=== PATIENT | male | born 1995 | race Caucasian/White ===

== ENCOUNTER 2020-11-27 21:28 | Emergency (ER) | payer SELFPAY ==
[~2020-11-27] VITALS: Ht 170.2 cm; Wt 162.4 kg
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
[2020-11-27] MEDS ORDERED: IV RINGERS SOLUTION,LACTATED 1,000 ML IV SCH (21:45)
[2020-11-27] MEDS ORDERED: ASPIRIN CHEWABLE 81 MG TABLET. PO ONE (21:45)
[2020-11-27 22:31] LABS: BASO # 0.1 x10^3/uL (0.0-0.2); BASO % 1 % (0-3); EOS # 0.2 x10^3/uL (0.0-0.7); EOS % 4 % (0-3); HEMATOCRIT 41.2 % (39.0-53.0); HEMOGLOBIN 14.1 g/dL (13.0-17.5); LYMPH # 1.8 x10^3/uL (1.0-4.8); LYMPH % 29 % (24-48); MEAN CORPUSCULAR HEMOGLOBIN 29 pg (25-35); MEAN CORPUSCULAR HGB CONC 34 g/dL (31-37); MEAN CORPUSCULAR VOLUME 84 fL (79-100); MONO # 0.4 x10^3/uL (0.0-1.1); MONO % 7 % (0-9); NEUT # 3.7 x10^3uL (1.8-7.7); NEUT % 60 % (31-73); PLATELET COUNT 232 x10^3/uL (140-400); RED BLOOD COUNT 4.89 x10^6/uL (4.30-5.70); RED CELL DISTRIBUTION WIDTH 13.6 % (11.5-14.5); WHITE BLOOD COUNT 6.2 x10^3/uL (4.0-11.0)
[2020-11-27 22:50] LABS: CALCIUM 8.6 mg/dL (8.5-10.1); CREATININE 0.8 mg/dL (0.7-1.3); POTASSIUM 3.5 mmol/L (3.5-5.1)
[2020-11-27 22:59] LABS: DIRECT BILIRUBIN 0.2 mg/dL (0.0-0.2); MAGNESIUM 1.8 mg/dL (1.8-2.4)
--- NOTE | 2020-11-27 23:20 | RAD ---
INDICATION: Reason: cp / Spl. Instructions: / History: COMPARISON: None. FINDINGS: 2 view of chest obtained. No focal airspace consolidation. Cardiomediastinal contour unremarkable. No acute osseous abnormality. IMPRESSION: * No focal airspace consolidation or edema. Electronically signed by: Sherman Sigala MD (11/27/2020 11:18 PM) [id number]
[2020-11-28 01:15] LABS: BARBITURATES NEG (NEG); BENZODIAZEPINES NEG (NEG); CANNABINOIDS NEG (NEG); COCAINE NEG (NEG); METHADONE NEG (NEG); OPIATES NEG (NEG); PHENCYCLIDINE NEG (NEG)
[2020-11-28 01:19] LABS: AMPHETAMINE/METHAMPHETAMINE NEG (NEG)
[2020-11-28 02:30] VITALS: BP 137/85
--- NOTE | 2020-11-28 03:11 | EKG ---
[address] [address] Test Date: 2020-11-27 Test Time: 21:51:50 Pat Name: VISHNU FERRER Department: Room: Gender: M Courtesy Booth Cashier: AMANDEEP : 1995 Requested By: RAS ZUNIGA Order Number: [id number] Reading MD: Measurements Intervals [place] Rate: 147 P: MO: QRS: 45 QRSD: 74 T: 17 QT: 298 QTc: 473 Interpretive Statements IRREGULAR RHYTHM, NO P-WAVE FOUND NO SPECIFIC ECG ABNORMALITIES RI6.02 Compared to ECG 11/27/2020 21:42:47 Sinus tachycardia no longer present Left-axis deviation no longer present
--- NOTE | 2020-11-28 03:32 | EKG ---
[facility] ED [facility] [address] [place] [address] Test Date: 2020-11-27 Test Time: 21:42:47 Pat Name: VISHNU FERRER Department: Room: Gender: M Instructor Pilot: AMANDEEP : 1995 Requested By: RAS ZUNIGA Order Number: [id number] Reading MD: Measurements Intervals [place] Rate: 111 P: 34 AK: 146 QRS: -17 QRSD: 90 T: 38 QT: 326 QTc: 447 Interpretive Statements SINUS TACHYCARDIA LEFTWARD AXIS OTHERWISE NORMAL ECG RI6.02 No previous ECG available for comparison
[2020-11-28 05:01] LABS: CLARITY,URINE CLEAR; COLOR,URINE YELLOW; GLUCOSE,URINE 250 mg/dL (NEG)
[2020-11-28 05:02] LABS: BACTERIA,URINE FEW /HPF (0-FEW); BILIRUBIN,URINE NEG (NEG); NITRITE,URINE NEG (NEG); RBC,URINE 0 /HPF (0-2); SQUAMOUS EPITHELIAL CELL,UR FEW /LPF; WBC,URINE 0 /HPF (0-4)
--- NOTE | 2020-11-28 06:31 | EKG ---
[address] [address] Test Date: 2020-11-28 Test Time: 03:23:56 Pat Name: VISHNU FERRER Department: Room: Gender: M [employer] Certified Network Professional: AMANDEEP : 1995 Requested By: RAS ZUNIGA Order Number: [id number] Reading MD: Measurements Intervals [place] Rate: 91 P: 31 UT: 156 QRS: -18 QRSD: 90 T: 0 QT: 356 QTc: 440 Interpretive Statements SINUS RHYTHM LEFTWARD AXIS OTHERWISE NORMAL ECG RI6.02 Compared to ECG 11/27/2020 21:42:47 Sinus tachycardia no longer present
[2020-11-28 10:31] LABS: THYROID STIM HORMONE (TSH) 2.164 uIU/mL (0.358-3.740)
== END 2020-11-28 03:34 | disposition home or self-care (01) ==
LOC: ER 21:28
DX: R07.89 Other chest pain (principal); E66.01 Morbid (severe) obesity due to excess calories; E11.9 Type 2 diabetes mellitus without complications; I10 Essential (primary) hypertension; F41.1 Generalized anxiety disorder; R74.9 Abnormal serum enzyme level, unspecified; Z68.43 Body mass index [BMI] 50.0-59.9, adult
CPT/HCPCS: 36415; 71046; 80048; 80061; 80076; 80307; 81001; 82550; 83690; 83735; 83880; 84443; 84484; 85025; 85379; 85610; 85730; 86705; 86709; 86803; 87340; 93005; 96360; 99285; J7120

== ENCOUNTER 2021-07-10 10:19 | Emergency (ER) | payer SELFPAY ==
[~2021-07-10] VITALS: Ht 175.3 cm; Wt 161.2 kg
[2021-07-10] MEDS ORDERED: IV NORMAL SALINE 1,000ML 1,000 ML IV ONE (10:45)
--- NOTE | 2021-07-10 10:46 | PHYS DOC ---
Past History Past Medical History: Anxiety, Diabetes, Hypertension Additional Past Medical Histor: hypoglycemia Past Surgical History: Other Additional Past Surgical Histo: PLASTIC SURGERY TO FACE, KNEE SURGERY Additional Smoking Information: PT CURRENTLY VAPES EVERY DAY Alcohol Use: Rarely General Adult EDM: Chief Complaint: FLANK PAIN HPI: HPI: 26-year-old male presents with left flank pain. He has been having left flank pain for several days. He has also had dry coughing for few days. He was having a coughing episode and he felt like there was a pop and that left flank area. He states that it is made the dull ache more consistent versus intermittent. It is a 3 out of 10. He denies nausea, vomiting, diarrhea. He did have some urinary pressure today but no frequency or dysuria. Review of Systems: Review of Systems: Constitutional: Denies fever or chills Eyes: Denies change in visual acuity HENT: Denies nasal congestion or sore throat Respiratory: Cough without shortness of breath Cardiovascular: Denies chest pain or edema GI: Denies abdominal pain, nausea, vomiting, bloody stools or diarrhea : Denies dysuria Musculoskeletal: Left flank pain Integument: Denies rash Neurologic: Denies headache, focal weakness or sensory changes Endocrine: Denies polyuria or polydipsia Lymphatic: Denies swollen glands Psychiatric: Denies depression or anxiety Allergies: Allergies: Allergies Coded Allergies Type Severity Reaction Last Updated Verified latex Allergy Unknown 07/10/21 Yes Physical Exam: PE: Constitutional: Well developed, well nourished, morbidly obese, no acute distress, non-toxic appearance. [] HENT: Normocephalic, atraumatic, bilateral external ears normal, oropharynx moist, no oral exudates, nose normal. [] Eyes: PERRLA, EOMI, conjunctiva normal, no discharge. [] Neck: Normal range of motion, no tenderness, supple, no stridor. [] Cardiovascular: Heart rate regular rhythm, no murmur [] Lungs & Thorax: Bilateral breath sounds clear to auscultation [] Abdomen: Bowel sounds normal, soft, left upper quadrant tenderness, no masses, no pulsatile masses. [] Skin: Warm, dry, no erythema, no rash. [] Back: No tenderness, no CVA tenderness. [] Extremities: No tenderness, no cyanosis, no clubbing, ROM intact, no edema. [] Neurologic: Alert and oriented X 3, normal motor function, normal sensory function, no focal deficits noted. [] Psychologic: Affect normal, judgement normal, mood anxious. [] Current Patient Data: Vital Signs: Vital Signs Date Time Temp Pulse Resp B/P (MAP) Pulse Ox O2 Delivery O2 Flow Rate FiO2 07/10/21 10:28 97.4 110 18 137/104 (115) 98 Room Air EKG: EKG: [] Radiology/Procedures: Radiology/Procedures: [] Impressions: PQRS Compliance Statement: One or more of the following individualized dose reduction techniques were utilized for this examination: 1. Automated exposure control 2. Adjustment of the mA and/or kV according to patient size 3. Use of iterative reconstruction technique Exam performed: CT scan of the abdomen and pelvis without contrast. Clinical Indication: Reason: left flank pain / Spl. Instructions: / History: Date of Service: 07/10/2021 10:44 AM. Comparison: None available Technique: Contiguous helical acquisitions are obtained through the abdomen and pelvis without IV contrast. Sagittal and coronal reformatted images are obtained and reviewed. CT abdomen and pelvis findings: The lung bases are essentially clear. Visualized heart is normal. Lack of IV contrast limits evaluation of abdominal viscera, however the liver, spleen and pancreas are normal. Gallbladder is distended. Both adrenal glands and bilateral kidneys are normal in size without hydronephrosis or nephrolithia sis. Aorta is normal in caliber without aneurysm. Small and large bowel loops are normal. Mild scattered stool is seen in the colon The visualized portion of the appendix is unremarkable. No inflammatory changes are seen in the right lower quadrant Distal ureters are nondilated. .Urinary bladder is decompressed and thick walled. . [Prostate gland, seminal vesicles and rectum appear normal.] No free or focal fluid collections are identified.Bones are unremarkable. Impression: No acute intra-abdominal or pelvic process detected. Electronically signed by: Leonor Madsen MD (07/10/2021 11:42 AM) [facility] DICTATED AND SIGNED BY: LEONOR MADSEN MD DATE: 07/10/21 1137 CC: SIMBA LEBLANC DO; PCP,NO ~MTH0 0 Heart Score: C/O Chest Pain: N/A Risk Factors: Risk Factors: DM, Current or recent (<one month) smoker, HTN, HLP, family history of CAD, obesity. Risk Scores: Score 0 - 3: 2.5% MACE over next 6 weeks - Discharge Home Score 4 - 6: 20.3% MACE over next 6 weeks - Admit for Clinical Observation Score 7 - 10: 72.7% MACE over next 6 weeks - Early Invasive Strategies Course & Med Decision Making: Course & Med Decision Making Pertinent Labs and Imaging studies reviewed. (See chart for details) The patient's labs are remarkable for an elevated glucose of 266. His urinalysis is negative for infection but does show greater than 1000 glucose. The patient appears to be diabetic. He has been given Zofran and a liter of normal saline in the ED. CT of the abdomen and pelvis is negative for acute findings. His pain is likely a strained intercostal muscle from his coughing. He has not previously been told he is diabetic. This is a new diagnosis. I strongly encouraged him to follow-up as soon as possible. He is stable for discharge at this time. [] Latrice Disclaimer: aLtrice Disclaimer: This electronic medical record was generated, in whole or in part, using a voice recognition dictation system. Departure Departure: Impression: Primary Impression: Left flank pain Additional Impression: Type 2 diabetes mellitus Qualified Codes: E11.9 - Type 2 diabetes mellitus without complications Disposition: HOME / SELF CARE / HOMELESS Condition: STABLE Referrals: PCPBETINA (PCP) Patient Instructions: Diabetes, FAQs, Diets for Diabetes, Food Labeling SIMBA LEBLANC DO Jul 10, 2021 10:46
[2021-07-10 11:11] LABS: BASO % 1 % (0-3); EOS # 0.3 x10^3/uL (0.0-0.7); EOS % 5 % (0-3); HEMATOCRIT 43.5 % (39.0-53.0); HEMOGLOBIN 14.9 g/dL (13.0-17.5); LYMPH # 1.8 x10^3/uL (1.0-4.8); LYMPH % 31 % (24-48); MEAN CORPUSCULAR HEMOGLOBIN 29 pg (25-35); MEAN CORPUSCULAR HGB CONC 34 g/dL (31-37); MEAN CORPUSCULAR VOLUME 85 fL (79-100); MONO # 0.3 x10^3/uL (0.0-1.1); MONO % 6 % (0-9); NEUT # 3.3 x10^3uL (1.8-7.7); NEUT % 57 % (31-73); PLATELET COUNT 228 x10^3/uL (140-400); RED BLOOD COUNT 5.12 x10^6/uL (4.30-5.70); RED CELL DISTRIBUTION WIDTH 13.2 % (11.5-14.5); WHITE BLOOD COUNT 5.7 x10^3/uL (4.0-11.0)
[2021-07-10 11:16] LABS: CREATININE 0.7 mg/dL (0.7-1.3); GFR 134.3; POTASSIUM 3.7 mmol/L (3.5-5.1)
[2021-07-10 11:22] LABS: TOTAL BILIRUBIN 1.3 mg/dL (0.2-1.0)
[2021-07-10 11:22] LABS: BACTERIA,URINE 0 /HPF (0-FEW); BILIRUBIN,URINE SMALL (NEG); CLARITY,URINE CLEAR; COLOR,URINE YELLOW; GLUCOSE,URINE >=1000 mg/dL (NEG); NITRITE,URINE NEG (NEG); RBC,URINE 0 /HPF (0-2); SQUAMOUS EPITHELIAL CELL,UR FEW /LPF; WBC,URINE OCC /HPF (0-4)
--- NOTE | 2021-07-10 11:44 | RAD ---
PQRS Compliance Statement: One or more of the following individualized dose reduction techniques were utilized for this examinat ion: 1. Automated exposure control 2. Adjustment of the mA and/or kV according to patient size 3. Use of iterative reconstruction technique Exam performed: CT scan of the abdomen and pelvis without contrast. Clinical Indication: Reason: left flank pain / Spl. Instructions: / History: Date of Service: 07/10/2021 10:44 AM. Comparison: None available Technique: Contiguous helical acquisitions are obtained through the abdomen and pelvis without IV con trast. Sagittal and coronal reformatted images are obtained and reviewed. CT abdomen and pelvis findings: The lung bases are essentially clear. Visualized heart is normal. Lack of IV contrast limits evaluation of abdominal viscera, however the liver, spleen and pancreas ar e normal. Gallbladder is distended. Both adrenal glands and bilateral kidneys are normal in size with out hydronephrosis or nephrolithiasis. Aorta is normal in caliber without aneurysm. Small and large b owel loops are normal. Mild scattered stool is seen in the colon The visualized portion of the append ix is unremarkable. No inflammatory changes are seen in the right lower quadrant Distal ureters are nondilated. .Urinary bladder is decompressed and thick walled. . [Prostate gland, seminal vesicles and rectum appear normal.] No free or focal fluid collections are identified.Bones are unremarkable. Impression: No acute intra-abdominal or pelvic process detected. Electronically signed by: Alexa Madsen MD (07/10/2021 11:42 AM) [facility]
[2021-07-10 12:19] VITALS: BP 151/92
== END 2021-07-10 12:36 | disposition home or self-care (01) ==
LOC: ER 10:19
DX: E11.9 Type 2 diabetes mellitus without complications (principal); R10.12 Left upper quadrant pain; F41.9 Anxiety disorder, unspecified; I10 Essential (primary) hypertension; F17.200 Nicotine dependence, unspecified, uncomplicated; Z91.040 Latex allergy status
CPT/HCPCS: 36415; 74176; 80053; 81001; 85025; 96360; 96361; 99284; J7030